=== PATIENT | female | born 1940 | race Caucasian/White ===

== ENCOUNTER 2018-05-08 09:13 | Inpatient (IN) | payer MEDICARE, OTHER ==
--- NOTE | 2018-05-08 09:48 | ED Physician Chart ---
ED Chief Complaint/HPI - Patient Information Date Seen:: 05/08/18 Time Seen:: 09:35 Chief Complaint:: confusion History of Present Illness:: Patient's had dementia for last 1-2 years. Patient is to be admitted to [facility] and possibly from there transferred to an extended care facility. Allergies:: Allergies Allergy/AdvReac Type Severity Reaction Status Date / Time No Known Allergies Allergy Verified 05/08/18 09:32 Vitals:: Vital Signs - 8 hr 05/08/18 09:25 HR 77 RR 16 BP 131/86 Historian:: Patient, Family Member Review:: Nurse's Note Reviewed ED Review of Systems - Review of Systems General/Constitutional: No fever, No chills, No weight loss, No weakness, No diaphoresis, No edema, No loss of appetite Skin: No skin lesions, No rash, No bruising Head: No headache, No light-headedness Eyes: No loss of vision, No pain, No diplopia ENT: No earache, No nasal drainage, No sore throat, No tinnitus Neck: No neck pain, No swelling, No thyromegaly, No stiffness, No mass noted Cardio Vascular: No chest pain, No palpitations, No PND, No orthopnea, No edema Pulmonary: No SOB, No cough, No sputum, No wheezing GI: No nausea, No vomiting, No diarrhea, No pain, No melena, No hematochezia, No constipation, No hematemesis G/U: No dysuria, No frequency, No hematuria Musculoskeletal: No bone or joint pain, No back pain, No muscle pain Endocrine: No polyuria, No polydipsia Psychiatric: Prior psych history, No depression, No anxiety, No suicidal ideation, Other (dementia) Hematopoietic: No bruising, No lymphadenopathy Allergic/Immuno: No urticaria, No angioedema Neurological: No syncope, No focal symptoms, No weakness, No paresthesia, No headache, No seizure, No dizziness, No confusion, No vertigo ED Past Medical History - Past Medical History Past Medical History: HTN, DM, Dementia Family History: Diabetes Melitus, HTN Social History: Non Smoker, No Alcohol Surgical History: Hysterectomy Psychiatricy History: Dementia Medication: Reviewed Family Medical History - Family Member Mother History Unknown: Yes Ethnicity: Living Status: ED Physical Exam - Physical Examination General/Constitutional: Awake, Well-developed, well-nourished, Alert, No distress, GCS 15, Non-toxic appearing, Ambulatory Other Gen/Cons comments:: Patient alert and oriented to the correct month, year and day of the week. Head: Atraumatic Eyes: Lids, conjuctiva normal, PERRL, EOMI Skin: Nl inspection, No rash, No skin lesions, No ecchymosis, Well hydrated, No lymphadenopathy ENMT: External ears, nose nl, Nasal exam nl, Lips, teeth, gums nl Neck: Nontender, Full ROM w/o pain, No JVD, No nuchal rigidity, No bruit, No mass, No stridor Respiratory: Nl effort/Exclusion, Clear to Auscultation, No Wheeze/Rhonchi/Rales Cardio Vascular: RRR, No murmur, gallop, rubs, NL S1 S2 GI: No tenderness/rebounding/guarding, No organomegaly, No hernia, Normal BS's, Nondistended, No mass/bruits, No McBurney tenderness : No CVA tenderness Extremities: No tenderness or effusion, Full ROM, normal strength in all extremities, No edema, Normal digits & nails Neuro/Psych: Alert/oriented, DTR's symmetric, Normal sensory exam, Normal motor strength, Judgement/insight normal, Mood normal, Normal gait, No focal deficits Misc: Normal back, No paraspinal tenderness ED Labs/Radiology/EKG Results - Lab Results Results: Laboratory Results - last 24 hr 05/08/18 05/08/18 05/08/18 09:40 10:05 10:05 WBC 8.7 RBC 4.42 Hgb 13.5 Hct 40.2 L MCV 91.1 MCH 30.6 MCHC Differential 33.6 RDW 12.3 Plt Count 324 MPV 8.7 Neutrophils % 56.1 Lymphocytes % 32.5 Monocytes % 4.8 Eosinophils % 5.1 H Basophils % 1.5 Sodium 134 L Potassium 3.6 Chloride 100 Carbon Dioxide 24.8 Anion Gap 12.8 BUN 18 Creatinine 1.0 Est GFR ( Amer) TNP Est GFR (Non-Af Amer) TNP BUN/Creatinine Ratio 18.0 Glucose 214 H Calcium 9.9 Total Bilirubin 0.3 AST 10 L ALT 14 Alkaline Phosphatase 64 Total Protein 8.6 H Albumin 4.9 Globulin 3.7 Albumin/Globulin Ratio 1.3 Triglycerides 432 H Cholesterol 215 H LDL Cholesterol Direct 114 HDL Cholesterol 53 Urine Source CLEAN C Urine Color YELLOW Urine Clarity CLEAR Urine pH 6.0 Ur Specific [place] 1.010 Urine Protein NEGATIVE Urine Glucose (UA) NEGATIVE Urine Ketones NEGATIVE Urine Blood NEGATIVE Urine Nitrate NEGATIVE Urine Bilirubin NEGATIVE Urine Urobilinogen 0.2 Ur Leukocyte Esterase NEGATIVE Urine RBC NONE SEEN Urine WBC 2-5 Ur Epithelial Cells OCCASIONAL Urine Bacteria FEW - EKG Interpretations Rate & Rhythm: normal sinus rhythm with a rate is 68; left axis deviation ED Septic Shock - . Is Septic Shock (SBP<90, OR Lactate>4 mmol\L) present?: No - <6hrs of presentation: Vital Signs: Vital Signs - 8 hr //18 09:25 HR 77 RR 16 BP 131/86 ED Reassessment (Disposition) - Reassessment Reassessment Condition:: Unchanged - Diagnosis Diagnosis:: Mild early dementia; diabetes; hyperglycemia - Patient Disposition Admitting Medical Physician:: Abel Ignacio Admitting Psych Physician:: Flaca Hernandez
[2018-05-08 10:23] LABS: % BASOPHILS 1.5 % (0.0-2.0); % EOSINOPHILS 5.1 % (0.0-5.0); % LYMPHOCYTES 32.5 % (20.0-50.0); % MONOCYTES 4.8 % (2.0-10.0); % NEUTROPHILS 56.1 % (40.0-80.0); BASOPHILE ABSOLUTE 0.1 Th/cumm (0-0.2); EOSINOPHILE ABSOLUTE 0.4 Th/cmm (0.1-0.4); HEMATOCRIT 40.2 % (41.0-60); HEMOGLOBIN 13.5 gm/dL (12-16); LYMPHOCYTE ABSOLUTE 2.8 Th/cmm (1.5-3.0); MEAN CELL VOLUME 91.1 fl (81-100); MEAN CORPUSCULAR HEMOGLOBIN 30.6 pg (27.0-31.0); MEAN CORPUSCULAR HGB CONC 33.6 pg (28.0-36.0); MEAN PLATELET VOLUME 8.7 fl; MONOCYTE ABSOLUTE 0.4 Th/cmm (0.3-1.0); PLATELET COUNT 324 Th/cmm (150-400); RED BLOOD COUNT 4.42 Mil/cmm (3.80-5.20); RED CELL DISTRIBUTION WIDTH 12.3 % (11.5-20.0); WHITE BLOOD COUNT 8.7 Th/cmm (4.8-10.8)
[2018-05-08 10:25] LABS: URINE MICROSCOPIC INDICATED? YES; URINE SOURCE CLEAN C
[2018-05-08 10:27] LABS: URINE BILIRUBIN NEGATIVE (NEGATIVE); URINE BLOOD NEGATIVE (NEGATIVE); URINE GLUCOSE (UA) NEGATIVE (NEGATIVE); URINE KETONE NEGATIVE (NEGATIVE); URINE LEUKOCYTE ESTERASE NEGATIVE (NEGATIVE); URINE NITRATE NEGATIVE (NEGATIVE); URINE PROTEIN NEGATIVE (NEGATIVE); URINE UROBILINOGEN 0.2 E.U./dL (0.2 - 1.0)
[2018-05-08 10:31] LABS: URINE CLARITY CLEAR (CLEAR); URINE COLOR YELLOW
[2018-05-08 10:34] LABS: URINE RBC NONE SEEN /hpf (0-5)
[2018-05-08 10:35] LABS: URINE BACTERIA FEW /hpf (NONE SEEN); URINE EPITHELIAL CELLS OCCASIONAL /lpf (FEW)
[2018-05-08 10:36] LABS: ALB/GLOB RATIO 1.3 (1.0-1.8); ALBUMIN 4.9 gm/dL (3.7-5.3); ALKALINE PHOSPHATASE 64 U/L (34-104); ANION GAP 12.8 (7.0-16.0); BILIRUBIN,TOTAL 0.3 mg/dL (0.3-1.0); BUN - UREA NITROGEN 18 mg/dL (7-25); CALCIUM SERUM 9.9 mg/dL (8.6-10.3); CARBON DIOXIDE 24.8 mEq/L (21.0-31.0); CHLORIDE 100 mEq/L (98-107); CHOLESTEROL 215 mg/dL (<200); GLUCOSE 214 mg/dL (70-105); HDL -HIGH DENSITY LIPOPROTEIN 53 mg/dL (23-92); POTASSIUM SERUM 3.6 mEq/L (3.5-5.1); SGOT 10 U/L (13-39); SGPT/ALT 14 U/L (7-52); SODIUM SERUM 134 mEq/L (136-145); TOTAL PROTEIN,SERUM 8.6 gm/dL (6.0-8.3); TRIGLYCERIDES 432 mg/dL (<150)
[2018-05-08 11:28] VITALS: BP 128/70
[2018-05-08] MEDS ORDERED: Maalox 30 mL Cup PO PRN (11:28)
[2018-05-08] MEDS ORDERED: Magnesium Hydroxide (MOM) 30 mL UDC PO PRN (11:28)
[2018-05-08] MEDS: INSULIN ASPART SLIDING SCALE 100 UNITS/ML UNIT SUBQ SCH ×2 (16:55→21:35)
[2018-05-08 18:45] LABS: A1C % 6.5 % (4.0-6.0)
[2018-05-09] MEDS: INSULIN ASPART SLIDING SCALE 100 UNITS/ML UNIT SUBQ SCH ×4 (06:51→21:10)
[2018-05-09] MEDS: Multivitamin Tab PO SCH (08:38)
--- NOTE | 2018-05-09 20:22 | Psychosocial Evaluation ---
DATE OF SERVICE: 05/09/2018 PSYCHIATRIC INITIAL EVALUATION AND MENTAL STATUS EXAM AGE: 77. SEX: Female. PHYSICIAN: Dr. Hernandez. CHIEF COMPLAINT: Confusion and agitation. HISTORY OF PRESENT ILLNESS: The patient is a 77-year-old female who was brought into the hospital by her son because of increased confusion and increased agitation. The patient's son said that the mother has been easily agitated and not able to care for her. She also has been forgetful and he has not been able to care for her. On the unit, the patient has been easily agitated and has been confused and needed lots of redirections. PAST PSYCHIATRIC HISTORY: Noncontributory except dementia. PAST MEDICAL HISTORY: The patient has hypertension and is taking Diovan. SOCIAL HISTORY: The patient lives with her son. No known alcohol or street drug abuse. ALLERGIES: No known allergies. MENTAL STATUS EXAMINATION: The patient appears her stated age. Anxious. In a depressed mood. Cooperative. The patient is Pakistani speaking and has difficulty expressing herself. She denied any suicidal or homicidal ideations. She denies hallucinations, but seems to be suspicious and paranoid. Impaired immediate and recent memories, but intact remote memories. Poor insight and poor judgment. ASSESSMENT: PRIMARY DIAGNOSIS: Depressive mood disorder, unspecified. SECONDARY DIAGNOSIS: Dementia, moderate. MEDICAL DIAGNOSIS: Hypertension. TREATMENT PLAN: We will monitor the patient's behavior closely. We will start individual as well as milieu psychotherapy. Also, we will start Lexapro in a dose of 5 mg at bedtime and we will monitor the dose. ESTIMATED LENGTH OF STAY: 7-10 days. THE PATIENT'S STRENGTHS AND WEAKNESSES: The patient has supportive son. Weaknesses is her ineffective coping. AFTER DISCHARGE PLAN: The patient will need placement and outpatient treatment and followup. CRITERIA FOR DISCHARGE: The patient will not be as confused and will stabilize psychotropic medications and will establish outpatient treatment plans. JOB# [id number]
[2018-05-09] MEDS: Escitalopram Oxalate 5 mg Tab PO SCH (21:13)
[2018-05-10] MEDS: INSULIN ASPART SLIDING SCALE 100 UNITS/ML UNIT SUBQ SCH ×4 (06:35→21:03)
[2018-05-10] MEDS: Pantoprazole 40 mg EC Tab PO SCH (06:36)
[2018-05-10] MEDS: Multivitamin Tab PO SCH (08:37)
--- NOTE | 2018-05-10 14:18 | Progress Notes ---
DATE: SUBJECTIVE: Chart reviewed and the patient interviewed. Also discussed the patient's condition with the staff and reviewed records and labs. The patient is still in a depressed mood. The patient also seems to be slightly confused and anxious. The patient also gets forgetful and needs lots of redirections. She denies any intention to harm herself. She also confirms taking her medications. ASSESSMENT: The patient is still confused and forgetful. TREATMENT PLAN: Continue to monitor her behavior and her condition closely. Also, continue to evaluate her condition as well as her memory. Also, working on her ineffective coping and coping skills. Also, we will work with the patient's son in regard to placement issue. JOB# [id number]
[2018-05-10] MEDS: Escitalopram Oxalate 5 mg Tab PO SCH (21:03)
[2018-05-11] MEDS: INSULIN ASPART SLIDING SCALE 100 UNITS/ML UNIT SUBQ SCH ×4 (06:33→20:55)
[2018-05-11] MEDS: Pantoprazole 40 mg EC Tab PO SCH (06:39)
[2018-05-11] MEDS: Multivitamin Tab PO SCH (09:00)
[2018-05-11] MEDS: Escitalopram Oxalate 5 mg Tab PO SCH (20:54)
--- NOTE | 2018-05-12 | Progress Notes ---
DATE: 05/11/2018 SUBJECTIVE: Chart reviewed and the patient interviewed. Also discussed the patient's condition with the staff and reviewed records and labs. The patient is still forgetful and confused. The patient also is still depressed. The patient also is still isolative and not interacting much with others because of her confusion. Otherwise, the patient is compliant with taking her medication and no side effects of medications. ASSESSMENT: The patient is still confused and needs close monitoring. TREATMENT PLAN: Continue to monitor her behavior and her condition closely. Also, continue working on behavioral modification and her ineffective coping and continue to follow up. JOB# [id number]
[2018-05-12] MEDS: Pantoprazole 40 mg EC Tab PO SCH (06:42)
[2018-05-12] MEDS: INSULIN ASPART SLIDING SCALE 100 UNITS/ML UNIT SUBQ SCH ×4 (06:50→20:57)
[2018-05-12] MEDS: Multivitamin Tab PO SCH (09:17)
--- NOTE | 2018-05-12 18:30 | Progress Notes ---
DATE: SUBJECTIVE: Chart reviewed and the patient interviewed. Also discussed the patient's condition with the staff and reviewed records and labs. The patient is still in a depressed mood. The patient also is still high on anxiety level. Also, because of her high on anxiety, she has disorganized thoughts. She also tends to isolate herself and stays by herself most of the time. ASSESSMENT: The patient is still depressed and slightly confused. TREATMENT PLAN: Continue monitoring her behavior and her condition and we will continue Lexapro in a dose of 5 mg every day and we will continue to follow up. JOB# [id number]
[2018-05-12] MEDS: Escitalopram Oxalate 5 mg Tab PO SCH (20:55)
[2018-05-13] MEDS: INSULIN ASPART SLIDING SCALE 100 UNITS/ML UNIT SUBQ SCH ×4 (06:35→20:34)
[2018-05-13] MEDS: Pantoprazole 40 mg EC Tab PO SCH (06:44)
[2018-05-13] MEDS: Multivitamin Tab PO SCH (08:47)
--- NOTE | 2018-05-13 09:29 | Internal Medicine Prog Note ---
Internal Medicine Objective - Results Result Diagrams: 05/08/18 10:05 05/08/18 10:05 Recent Labs: Laboratory Last Values WBC 8.7 Th/cmm (4.8-10.8) 05/08/18 10:05 RBC 4.42 Mil/cmm (3.80-5.20) 05/08/18 10:05 Hgb 13.5 gm/dL (12-16) 05/08/18 10:05 Hct 40.2 % (41.0-60) L 05/08/18 10:05 MCV 91.1 fl (81-100) 05/08/18 10:05 MCH 30.6 pg (27.0-31.0) 05/08/18 10:05 MCHC Differential 33.6 pg (28.0-36.0) 05/08/18 10:05 RDW 12.3 % (11.5-20.0) 05/08/18 10:05 Plt Count 324 Th/cmm (150-400) 05/08/18 10:05 MPV 8.7 fl 05/08/18 10:05 Neutrophils % 56.1 % (40.0-80.0) 05/08/18 10:05 Lymphocytes % 32.5 % (20.0-50.0) 05/08/18 10:05 Monocytes % 4.8 % (2.0-10.0) 05/08/18 10:05 Eosinophils % 5.1 % (0.0-5.0) H 05/08/18 10:05 Basophils % 1.5 % (0.0-2.0) 05/08/18 10:05 Sodium 134 mEq/L (136-145) L 05/08/18 10:05 Potassium 3.6 mEq/L (3.5-5.1) 05/08/18 10:05 Chloride 100 mEq/L (98-107) 05/08/18 10:05 Carbon Dioxide 24.8 mEq/L (21.0-31.0) 05/08/18 10:05 Anion Gap 12.8 (7.0-16.0) 05/08/18 10:05 BUN 18 mg/dL (7-25) 05/08/18 10:05 Creatinine 1.0 mg/dL (0.6-1.2) 05/08/18 10:05 Est GFR ( Amer) TNP 05/08/18 10:05 Est GFR (Non-Af Amer) TNP 05/08/18 10:05 BUN/Creatinine Ratio 18.0 05/08/18 10:05 Glucose 214 mg/dL (70-105) H 05/08/18 10:05 POC Glucose 127 MG/DL (70 - 105) H 05/13/18 06:18 Hemoglobin A1c % 6.5 % (4.0-6.0) H 05/08/18 10:05 Calcium 9.9 mg/dL (8.6-10.3) 05/08/18 10:05 Total Bilirubin 0.3 mg/dL (0.3-1.0) 05/08/18 10:05 AST 10 U/L (13-39) L 05/08/18 10:05 ALT 14 U/L (7-52) 05/08/18 10:05 Alkaline Phosphatase 64 U/L (34-104) 05/08/18 10:05 Total Protein 8.6 gm/dL (6.0-8.3) H 05/08/18 10:05 Albumin 4.9 gm/dL (3.7-5.3) 05/08/18 10:05 Globulin 3.7 gm/dL 05/08/18 10:05 Albumin/Globulin Ratio 1.3 (1.0-1.8) 05/08/18 10:05 Triglycerides 432 mg/dL (<150) H 05/08/18 10:05 Cholesterol 215 mg/dL (<200) H 05/08/18 10:05 LDL Cholesterol Direct 114 mg/dL (75-193) 05/08/18 10:05 HDL Cholesterol 53 mg/dL (23-92) 05/08/18 10:05 TSH 3.15 uIU/ml (0.34-5.60) 05/08/18 10:05 Urine Source CLEAN C 05/08/18 09:40 Urine Color YELLOW 05/08/18 09:40 Urine Clarity CLEAR (CLEAR) 05/08/18 09:40 Urine pH 6.0 (4.6 - 8.0) 05/08/18 09:40 Ur Specific [place] 1.010 (1.005-1.030) 05/08/18 09:40 Urine Protein NEGATIVE mg/dL (NEGATIVE) 05/08/18 09:40 Urine Glucose (UA) NEGATIVE mg/dL (NEGATIVE) 05/08/18 09:40 Urine Clinitest CHEMICAL LAB TECHNICIAN 05/08/18 09:40 Urine Ketones NEGATIVE mg/dL (NEGATIVE) 05/08/18 09:40 Urine Blood NEGATIVE (NEGATIVE) 05/08/18 09:40 Urine Nitrate NEGATIVE (NEGATIVE) 05/08/18 09:40 Urine Bilirubin NEGATIVE (NEGATIVE) 05/08/18 09:40 Urine Ictotest CHEMICAL LAB TECHNICIAN 05/08/18 09:40 Urine Urobilinogen 0.2 E.U./dL (0.2 - 1.0) 05/08/18 09:40 Ur Leukocyte Esterase NEGATIVE (NEGATIVE) 05/08/18 09:40 Ur Micro Indicated Cancelled 05/08/18 09:40 Urine RBC NONE SEEN /hpf (0-5) 05/08/18 09:40 Urine WBC 2-5 /hpf (0-5) 05/08/18 09:40 Ur Epithelial Cells OCCASIONAL /lpf (FEW) 05/08/18 09:40 Calcium Oxalate Crystal CHEMICAL LAB TECHNICIAN 05/08/18 09:40 Uric Acid Crystals CHEMICAL LAB TECHNICIAN 05/08/18 09:40 Triple Phos Crystals CHEMICAL LAB TECHNICIAN 05/08/18 09:40 Other Crystals CHEMICAL LAB TECHNICIAN 05/08/18 09:40 Amorphous Sediment CHEMICAL LAB TECHNICIAN 05/08/18 09:40 Urine Bacteria FEW /hpf (NONE SEEN) 05/08/18 09:40 Hyaline Casts CHEMICAL LAB TECHNICIAN 05/08/18 09:40 Fine Granular Casts CHEMICAL LAB TECHNICIAN 05/08/18 09:40 Coarse Granular Casts CHEMICAL LAB TECHNICIAN 05/08/18 09:40 Waxy Casts CHEMICAL LAB TECHNICIAN 05/08/18 09:40 RBC Casts CHEMICAL LAB TECHNICIAN 05/08/18 09:40 WBC Casts CHEMICAL LAB TECHNICIAN 05/08/18 09:40 Other Casts CHEMICAL LAB TECHNICIAN 05/08/18 09:40 Urine Mucus CHEMICAL LAB TECHNICIAN 05/08/18 09:40 Urine Other CHEMICAL LAB TECHNICIAN 05/08/18 09:40 Urine Trichomonas CHEMICAL LAB TECHNICIAN 05/08/18 09:40 Urine Yeast CHEMICAL LAB TECHNICIAN 05/08/18 09:40 Urine Sperm CHEMICAL LAB TECHNICIAN 05/08/18 09:40 Ur Oval Fat Bodies CHEMICAL LAB TECHNICIAN 05/08/18 09:40 RPR NONREACTIVE (NONREACTIVE) 05/08/18 10:05 - Physical Exam Vitals and I&O: Vital Signs Temp 98 F 05/13/18 06:57 Pulse 84 05/13/18 08:46 Resp 20 05/13/18 06:57 BP 131/71 05/13/18 08:46 Pulse Ox 96 05/13/18 06:57 Intake & Output 05/12/18 05/13/18 05/13/18 18:59 06:59 18:59 Intake Total 2550 240 Balance 2550 240 Intake: Oral 2550 240 Other: # Voids 3 2 # Bowel Movements 2 Active Medications: Current Medications Acetaminophen (Tylenol) 650 mg PO Q4HR PRN PRN Reason: Mild Pain / Temp above 100 Stop: 07/07/18 11:27 Last Admin: 05/12/18 14:12 Dose: 650 mg Al Hydrox/Mg Hydrox/Simethicone (Maalox) 30 ml PO Q4HR PRN PRN Reason: GI DISTRESS Stop: 07/07/18 11:27 Escitalopram Oxalate (Lexapro) 5 mg PO HS [facility]; Protocol Stop: 07/08/18 20:59 Last Admin: 05/12/18 20:55 Dose: 5 mg Gemfibrozil (Lopid) 600 mg PO BIDAC [facility] Stop: 07/08/18 16:29 Last Admin: 05/13/18 06:44 Dose: 600 mg Insulin Aspart (Novolog Insulin Sliding Scale) 0 units SUBQ ACHS [facility]; Protocol Stop: 07/07/18 16:29 Last Admin: 05/13/18 06:35 Dose: Not Given Lorazepam (Ativan) 0.5 mg PO Q4HR PRN; Protocol PRN Reason: Agitation Stop: 06/07/18 11:27 Last Admin: 05/10/18 03:05 Dose: 0.5 mg Magnesium Hydroxide (Milk Of Magnesia) 30 ml PO HS PRN PRN Reason: Constipation Multivitamins/Vitamin C (Theragran) 1 tab PO DAILY [facility] Stop: 07/08/18 08:59 Last Admin: 05/13/18 08:47 Dose: 1 tab Pantoprazole Sodium (Protonix) 40 mg PO QDAC [facility] Stop: 07/09/18 07:29 Last Admin: 05/13/18 06:44 Dose: 40 mg Valsartan (Diovan) 160 mg PO DAILY [facility] Stop: 07/08/18 08:59 Last Admin: 05/13/18 08:46 Dose: 160 mg Zolpidem Tartrate (Ambien) 5 mg PO HS PRN PRN Reason: Insomnia Stop: 07/07/18 11:27 Last Admin: 05/12/18 20:55 Dose: 5 mg Nutritional Asmnt/Malnutr-PDOC - Dietary Evaluation Malnutrition Findings (Please click <Entered> for more info): Nutritional Asmnt/Malnutrition Start: 05/09/18 14: 41 Text: Status: Complete Freq: Protocol: Document 05/09/18 14:41 LCHENG (Rec: 05/09/18 14:55 [email or web address] [id number]) Nutritional Asmnt/Malnutrition Patient General Information Nutritional Screening High Risk Diagnosis psychosis Pertinent Medical Hx/Surgical Hx HTN, DM, dementia, hysterectomy, dementia Subjective Information Pt seen eating lunch in her room at time of visit. Pt has no question or concern about current diet. BS 214 at admission noted. Not appropriate to provide diabetic education d/t mental status. Current Diet Order/ Nutrition Support CCHO-60gm, low sodium Pertinent Medications theragran, protonix Pertinent Labs 05/08 Na 134, glucose 214, A1c 6.5 05/08-05/09 POC 121-148 Nutritional Hx/Data Height 1.63 m Height (Calculated Centimeters) 162.6 Current Weight (lbs) 58.967 kg Weight (Calculated Kilograms) 59.0 Weight (Calculated Grams) 41413.0 [place] Body Weight 120 Body Mass Index (BMI) 22.3 Weight Status Approriate GI Symptoms GI Symptoms None Last BM not indicated Difficult in: None Skin Integrity/Comment: intact Estimated Nutritional Goals BEE in Kcals: Using Current wt Calories/Kcals/Kg 25-30 Kcals Calculated 7535-5822 Protein: Using Current wt Protein g/k-1.2 Protein Calculated 59-71 Fluid: ml 1475-1770ml (1ml/kcal) Nutritional Problem 1. Problem Problem altered nutrition related labs Etiology hx of DM Signs/Symptoms: glucose 214, A1c 6.5, POC 121- 148 Malnutrition Alert Is there a minimum of two criteria No selected? Query Text:Check all the applicable criteria. A minimum of two criteria are recommended for diagnosis of either severe or non-severe malnutrition. Malnutrition Related to Morbid Obesity Malnutrition related to morbid obesity No Intervention/Recommendation Comments 1. Continue with CCHO 60gm, low sodium diet as ordered. 2. Monitor PO intake, wt, labs and skin integrity 3. F/U as moderate risk in 3-5 days, 05/12-05/14 Expected Outcomes/Goals Expected Outcomes/Goals 1. PO intake to meet at least 75% of nutritional needs. 2. Wt stability, skin to remain intact, labs to approach WNL.
--- NOTE | 2018-05-13 15:45 | Progress Notes ---
DATE: 05/12/2018 SUBJECTIVE: The patient was seen and examined. The patient ____. The patient speaks Iranian only. On further questioning, the patient denies any chest ____, nausea. PHYSICAL EXAMINATION: VITAL SIGNS: Temperature 97.9, pulse 76, respiratory rate 18, and blood pressure 130/70. HEENT: No facial asymmetry. NECK: Supple. No JVD. HEART: Regular. CHEST: Lung equal in expansion. No wheezing, no crackles. ____ ____ take psych medication. ____ care plan reviewed and discussed with staff. JOB# [id number]
[2018-05-13] MEDS: Escitalopram Oxalate 5 mg Tab PO SCH (20:15)
--- NOTE | 2018-05-13 22:22 | Progress Notes ---
DATE: Chart reviewed and the patient interviewed. Also discussed the patient's condition with the staff and reviewed records and labs. The patient seems to be slightly less depressed and she seems to be doing better since she has a roommate and she has been talking about her roommate. She seems to be less isolative. Also seems to be slightly less depressed, but at the same time, affect is flat and mood seems to be depressed. ASSESSMENT: The patient is still depressed, but not suicidal. TREATMENT PLAN: The patient continued to take Lexapro 5 mg every day with no side effects. We will continue same dose and will continue to follow up. [facility]# [id number]
--- NOTE | 2018-05-14 04:44 | Progress Notes ---
DATE: PATIENT'S IDENTIFYING DATA: A 77-year-old female patient seen and examined earlier in the morning at 9:30. OBJECTIVE: GENERAL: The patient lying in the bed. The patient denies any chest pain, shortness of breath, palpitation, dizziness. VITAL SIGNS: Temperature 98, pulse is 84, respiratory rate is 18, blood pressure 131/71. HEENT: No facial asymmetry. NECK: Supple, no JVD. HEART: Regular. CHEST AND LUNGS: Equal in expansion, no wheezing, no crackles. ABDOMEN: Soft. EXTREMITIES: No edema. LABORATORY DATA: Glucose panel is reviewed. CLINICAL IMPRESSION: 1. Diabetes. 2. Hypertension. 3. Hyperlipidemia. 4. DJD. 5. Psychotic disorder. PLAN: 1. Continue Lopid. 2. Sliding scale insulin. 3. Protonix. 4. Diovan. 5. Psych medication. 6. Psych followup. 7. Symptoms management. 8. Medication management. 9. Follow lab. 10. We will continue to follow this patient during the stay in the hospital. JOB# [id number]
[2018-05-14] MEDS: INSULIN ASPART SLIDING SCALE 100 UNITS/ML UNIT SUBQ SCH ×4 (06:31→21:10)
[2018-05-14] MEDS: Pantoprazole 40 mg EC Tab PO SCH (06:32)
[2018-05-14] MEDS: Multivitamin Tab PO SCH (09:39)
--- NOTE | 2018-05-14 16:39 | History & Physical ---
ADMIT DATE: 05/09/2018 REASON FOR H and P: Multiple medical problems including diabetes mellitus, gastroesophageal reflux disease, and hypertension. HISTORY OF PRESENT ILLNESS: A 77-year-old female admitted to the Geropsych Unit asking me when she can go home. Denies any headache, vision problem or swallowing problem. No chest pain, chest pain or palpitation. Denies abdominal pain, nausea, vomiting, diarrhea, or melena. Denies any leg swelling or joint swelling. No fever or chill. No cough or sputum production. PAST MEDICAL HISTORY: As mentioned above. The patient had also previous history of a dementia, diabetes, hypertension, and cardiac arrhythmias. CURRENT MEDICATIONS: Includes Maalox 30 mL q.4 hours, Lexapro 5 mg once a day, Accu-Chek sliding scale, Ativan 0.5 mg q.4 p.r.n., and multivitamin 1 tablet once a day, Protonix 40 once a day, Diovan 160 once a day, Ambien 5 mg p.o. at bedtime, and Eliquis 5 mg b.i.d. SOCIAL HISTORY: No smoking, alcohol. FAMILY HISTORY: Noncontributory. REVIEW OF SYSTEMS: See the history of presenting illness. PHYSICAL EXAMINATION: VITAL SIGNS: Height is 1.63 meter, weight 58.9 kg, BMI 22.3, temperature afebrile 98, pulse 69, respiratory rate 18, blood pressure 146/73, and oxygen saturation 96%. HEENT: Examination icterus, no pallor. Mucosa is moist. Skin turgor is normal. NECK: Supple. No JVD, bruit, or lymphadenopathy. LUNGS: Clear. CARDIOVASCULAR: S1, S2 is normal, globally. ABDOMEN: Soft, nontender with regular bowel sound. EXTREMITIES: No leg edema noted. Dorsalis pedis palpable. MUSCULOSKELETAL: No clubbing, cyanosis, or synovitis. DIPLOMA MAKER: The patient is able to follow all commands. No other focal deficit noted. LABORATORY TESTS: WBC 8.7, hemoglobin 13.5, MCV 91, platelet count of 224,000, neutrophil 56%. Sodium 134, potassium 3.6, chloride 100, bicarbonate 25, BUN 18, creatinine 1.0. Glucose of 214. Current Accu-Chek is 159, hemoglobin A1c 6.5, calcium 9.3. Liver panel unremarkable. Albumin normal at 4.9. Cholesterol 215, triglyceride 432, LDL 114, HDL 53. TSH 3.1. Urinalysis: pH 6.0, specific gravity 1.010, otherwise unremarkable. RPR is nonreactive. ASSESSMENT AND PLAN: 1. Dementia, further plan per Dr. Hernandez. 2. Diabetes mellitus type 2, currently stable on A1c of 6.5. Continue Accu-Chek sliding scale. 3. Hypertension, continue Diovan 160 mg per day. 4. Cardiac arrhythmia, on Eliquis, continue with anticoagulation, on Eliquis or Xarelto. 5. Gastroesophageal reflux disease, continue proton pump inhibitor, omeprazole is 5 mg. 6. Hyperlipidemia with triglyceridemia, we will continue with Lopid 600 mg two times a day and go from there. JOB# [id number]
--- NOTE | 2018-05-14 20:41 | Progress Notes ---
DATE: 05/14/2018 SUBJECTIVE: Chart reviewed and the patient interviewed. Also, discussed the patient's condition with the staff and reviewed records and labs. The patient seems to be less anxious. She is still preoccupied and she still needs reassurance. The patient also is cooperative in regard to her treatment and taking her medications regularly. She is still in a depressed mood, but seems that her depression is also slightly less than before. ASSESSMENT: The patient is still depressed, but showing some improvement. TREATMENT PLAN: Continue to monitor her behavior and her condition closely. Also, working on her ineffective coping and also discharge plans and placement issue. JOB# [id number]
[2018-05-14] MEDS: Escitalopram Oxalate 5 mg Tab PO SCH (21:02)
--- NOTE | 2018-05-15 00:35 | Progress Notes ---
DATE: 05/14/2018 IDENTIFICATION: A 77-year-old female. The patient seen and examined. The patient is lying in the bed. No new event. AVAILABLE LAB: MAR reviewed. PHYSICAL EXAMINATION: VITAL SIGNS: Temperature 98, pulse is 74, respiratory rate 18, blood pressure 123/80. HEENT: No facial asymmetry. NECK: Supple, no JVD. HEART: Regular, no murmur. CHEST: Equal in expansion, no wheezing, no crackles. ABDOMEN: Soft. No guarding, no rigidity. Bowel sounds are present. No palpable mass. EXTREMITIES: No edema. CLINICAL IMPRESSION: 1. Diabetes. 2. Hypertension. 3. Hyperlipidemia. 4. Degenerative joint disease. 5. Psychotic disorder. PLAN: 1. Monitor blood sugar. 2. Monitor blood pressure. 3. Lopid. 4. Antihypertensive medicine. 5. Sliding scale insulin. 6. Psychotic medication. 7. Psych followup. 8. General nursing care. 9. Care plan reviewed and discussed with staff. JOB# [id number]
[2018-05-15] MEDS: INSULIN ASPART SLIDING SCALE 100 UNITS/ML UNIT SUBQ SCH ×4 (06:50→21:49)
[2018-05-15] MEDS: Pantoprazole 40 mg EC Tab PO SCH (06:50)
[2018-05-15] MEDS: Multivitamin Tab PO SCH (08:29)
[2018-05-15] MEDS: Escitalopram Oxalate 5 mg Tab PO SCH (21:28)
--- NOTE | 2018-05-16 00:08 | Progress Notes ---
DATE: SUBJECTIVE: Chart reviewed and the patient interviewed. Also discussed the patient's condition with the staff and reviewed records and labs. The patient continued to be depressed and withdrawn. The patient also still wants to be left alone. The patient also still seems to be preoccupied, but denies any psychosis or hallucinations. The patient also is compliant with taking her Lexapro with no side effects. ASSESSMENT: The patient is still in depressed. TREATMENT PLAN: We will continue monitoring her behavior and her condition closely. Also, continue Lexapro same dose and continue to work on her ineffective coping. Also, working with the patient's son and discharge plan in regard to placement issue. JOB# [id number]
--- NOTE | 2018-05-16 03:26 | Progress Notes ---
DATE: 05/15/2018 IDENTIFICATION: A 77-year-old female. SUBJECTIVE: The patient seen and examined. The patient is lying in the bed. The patient denies any chest pain, shortness of breath, palpitation, dizziness, nausea, and vomiting. Glucoscan is reviewed. PHYSICAL EXAMINATION: VITAL SIGNS: Temperature 97.4, pulse is 74, respiratory rate 18, and blood pressure 120/60. HEENT: No facial asymmetry. NECK: Supple. No JVD. HEART: Regular, no murmur. CHEST: Lungs are equal in expansion. No wheezing and no crackles. ABDOMEN: Soft. No guarding and no rigidity. Bowel sounds are present. No palpable mass. EXTREMITIES: No edema and no cyanosis. NEUROLOGIC: Nonfocal. CLINICAL IMPRESSION: 1. Diabetes mellitus. 2. Hypertension. 3. Cardiac arrhythmia. 4. Gastroesophageal reflux disease. 5. Hyperlipidemia. 6. Psychotic disorder. 7. Dementia. PLAN: 1. Diabetes management. 2. Continue Diovan. 3. Eliquis. 4. Rate control. 5. Proton pump inhibitor. 6. Lopid. 7. Psych medication as per psychiatrist. 8. Care plan reviewed and discussed with staff. JOB# [id number]
[2018-05-16] MEDS: INSULIN ASPART SLIDING SCALE 100 UNITS/ML UNIT SUBQ SCH ×4 (06:41→20:41)
[2018-05-16] MEDS: Pantoprazole 40 mg EC Tab PO SCH (06:41)
[2018-05-16] MEDS: Multivitamin Tab PO SCH (08:22)
[2018-05-16] MEDS: Escitalopram Oxalate 5 mg Tab PO SCH (20:41)
--- NOTE | 2018-05-16 22:10 | Progress Notes ---
DATE: SUBJECTIVE: Chart reviewed and the patient interviewed. Also discussed the patient's condition with the staff and reviewed records and labs. The patient is calm and quiet. She also is still in a depressed mood and guarded. She is interacting minimally with others. No behavioral problems. The patient is still depressed. Denies any thoughts of suicide. ASSESSMENT: The patient is still depressed. TREATMENT PLAN: Continue Lexapro 5 mg every day. Also discussed with caseworker protective services yesterday discharge plans and placement issue and still lot of confusion about where the patient is going to go and it seems that patient's son who is involved in her care is still undecided about where she can go. At the same time, we will continue to work with the patient's son as well as caseworker protective services in regard to discharge plans and placement issue. JOB# [id number]
--- NOTE | 2018-05-17 00:47 | Progress Notes ---
DATE: 05/16/2018 SUBJECTIVE: The patient seen and examined. The patient is lying in the bed. The patient denies any new complaint. PHYSICAL EXAMINATION: GENERAL: The patient is going to be discharged on exam. VITAL SIGNS: See nurses' note. HEENT: Poor dentition. NECK: Supple, no JVD. HEART: Regular, no murmur. CHEST AND LUNGS: Equal in expansion, no wheezing, no crackles. ABDOMEN: Soft. EXTREMITIES: No edema. NEUROLOGIC: Nonfocal. ASSESSMENT: 1. Diabetes mellitus. 2. Hypertension. 3. Hyperlipidemia. 4. Cardiac arrhythmia. 5. Gastroesophageal reflux disease. 6. Psychotic disorder. 7. Dementia. PLAN: The patient's medical problems remaining stable at this time. The patient can be discharged to lower level of care with the same treatment plan as prescribed. JOB# [id number]
[2018-05-17] MEDS: Pantoprazole 40 mg EC Tab PO SCH (06:41)
[2018-05-17] MEDS: INSULIN ASPART SLIDING SCALE 100 UNITS/ML UNIT SUBQ SCH ×4 (06:56→21:09)
[2018-05-17] MEDS: Multivitamin Tab PO SCH (09:40)
[2018-05-17] MEDS: Escitalopram Oxalate 5 mg Tab PO SCH (21:05)
--- NOTE | 2018-05-17 21:05 | Progress Notes ---
DATE: SUBJECTIVE: Chart reviewed and the patient interviewed. Also discussed the patient's condition with the staff and reviewed records and labs. The patient is still guarded and preoccupied. The patient also is restless and is still depressed mood. She also is still unable to provide safe plan for self-care. Also still not clear about the discharge plans and I am trying to communicate with the patient's son in regard to placement issue and that the patient is unable to care for self. At the same time, we will continue Lexapro at same dose and continue to follow up. JOB# [id number]
[2018-05-18] MEDS: Pantoprazole 40 mg EC Tab PO SCH (06:35)
[2018-05-18] MEDS: INSULIN ASPART SLIDING SCALE 100 UNITS/ML UNIT SUBQ SCH ×4 (06:36→20:43)
[2018-05-18] MEDS: Multivitamin Tab PO SCH (10:06)
--- NOTE | 2018-05-18 20:20 | Progress Notes ---
DATE: 05/18/2018 SUBJECTIVE: Chart reviewed and the patient interviewed. Also discussed the patient's condition with the staff and reviewed records and labs. The patient still seems to be preoccupied and is still withdrawn and interacting minimally with others. The patient also is still anxious and seems to be in a depressed mood. She denies any intention to harm herself or others. She also , but she is still depressed . Otherwise, the patient is compliant with taking her medications with no side effects of medications. ASSESSMENT: The patient is still depressed. TREATMENT PLAN: Continue monitoring her behavior and her condition closely. Also, working with case work aide and the patient's son in regard to placement issue and discharge plans. JOB# [id number]
[2018-05-18] MEDS: Escitalopram Oxalate 5 mg Tab PO SCH (20:42)
[2018-05-19] MEDS: INSULIN ASPART SLIDING SCALE 100 UNITS/ML UNIT SUBQ SCH ×2 (06:40→15:34)
[2018-05-19] MEDS: Pantoprazole 40 mg EC Tab PO SCH (06:49)
[2018-05-19] MEDS: Multivitamin Tab PO SCH (09:14)
--- NOTE | 2018-05-20 03:31 | Progress Notes ---
DATE: 05/19/[address] Hernandez. Case was discussed with staff of the patient and reviewed records. This is a 77-year-old female who was admitted on 05/08/2018 because of confusion and agitation. She was brought by her son because of that. The patient has been easily agitated, confused and needing redirection. The patient ____, apparently Dr. Hernandez gave an order for the patient to be discharged and the patient will be leaving today. The discharge has been already processed; however, when I checked her, she is currently doing well. She was calm and cooperative. Denies any intent to harm herself or anybody. Denies any history of visual hallucination, responding well to redirection. The patient will be discharged to a lesser level of care as per Dr. Hernandez. JOB# [id number]
--- NOTE | 2018-05-20 21:52 | Discharge Summary ---
DATE OF DISCHARGE: 05/19/2018 THE PATIENT'S AGE: 77. SEX: Female. PHYSICIAN: Dr. Hernandez. FINAL DIAGNOSIS/PRIMARY DIAGNOSES: Major depression, severe, single episode, without psychotic features. SECONDARY DIAGNOSIS: Dementia, mild to moderate. REASON FOR HOSPITALIZATION: The patient was brought into the hospital by her son because of depression and also slight confusion and forgetfulness, and he was not there to help her. HOSPITAL COURSE: The patient continued to be in a depressed mood. The patient also was anxious and was withdrawn. She interacted minimally with others. She was slightly confused and needed redirections and it was easy to redirect her. The patient was not suicidal or homicidal. The patient was given Lexapro with no side effects. Placement was an issue. The patient's son agreed that the patient can go to [facility] to continue her treatment. Physical examination of the patient showed no major medical problems for the patient and the lab work was basically within normal. AFTER-DISCHARGE PLANS: The patient discharged from the hospital, went to [facility] with plans for outpatient treatment there. EXPECTED OUTCOME AFTER DISCHARGE: Fair if the patient continues to take psychotropic medications and follow up with discharge plans. JOB# [id number]
== END 2018-05-19 15:30 | DRG 885 ==
LOC: ER 09:13 → GERO2 10:50
PROVIDERS: ADMIT Psychiatry & Neurology Psychiatry; ATTEND Psychiatry & Neurology Psychiatry
DX: F32.2 Major depressive disorder, single episode, severe without psychotic features (principal); E11.65 Type 2 diabetes mellitus with hyperglycemia; F03.90 Unspecified dementia, unspecified severity, without behavioral disturbance, psychotic disturbance, mood disturbance, and anxiety; I10 Essential (primary) hypertension; Z83.3 Family history of diabetes mellitus; Z82.49 Family history of ischemic heart disease and other diseases of the circulatory system; Z90.710 Acquired absence of both cervix and uterus; K21.9 Gastro-esophageal reflux disease without esophagitis; I49.9 Cardiac arrhythmia, unspecified; E78.1 Pure hyperglyceridemia; M19.90 Unspecified osteoarthritis, unspecified site
CPT/HCPCS: 36415-UA; 80053-TC; 80061-TC; 81001-TC; 82948-90; 83036-90; 84443-TC; 85025-TC; 86592-TC; 93005; G0410; J1815; Z7610